=== PATIENT | male | born 1980 | race African-American/Black ===

== ENCOUNTER 2024-05-14 18:38 | Emergency (ER) | payer OTHER ==
[~2024-05-14] VITALS: Ht 170.2 cm; Wt 81.6 kg
[2024-05-14 19:44] VITALS: BP 140/70; TEMP 98.3; O2SAT 98
[2024-05-14] MEDS ORDERED: SULF1TAB48 PO (20:25)
[2024-05-14] MEDS ORDERED: CEPH-570 PO (20:25)
[2024-05-15] MEDS ORDERED: CEPH-570 PO (09:33)
== END 2024-05-14 20:40 | disposition home or self-care (01) ==
LOC: ER 18:49
DX: S20.364A Insect bite (nonvenomous) of middle front wall of thorax, initial encounter (principal); W57.XXXA Bitten or stung by nonvenomous insect and other nonvenomous arthropods, initial encounter; Y93.89 Activity, other specified; Y92.89 Other specified places as the place of occurrence of the external cause; Y99.8 Other external cause status